=== PATIENT | male | born 1965 | race Caucasian/White ===

== ENCOUNTER 2019-05-16 10:19 | Emergency (ER) | payer OTHER ==
[~2019-05-16] VITALS: Ht 170.2 cm; Wt 96.2 kg
== END 2019-05-16 11:21 | disposition home or self-care (01) ==
LOC: ED 10:19
PROC: 0HQEXZZ Repair Left Lower Arm Skin, External Approach (ICD-10-PCS; principal; 2019-05-16)
DX: S61.512A Laceration without foreign body of left wrist, initial encounter (principal); F17.200 Nicotine dependence, unspecified, uncomplicated; W26.8XXA Contact with other sharp object(s), not elsewhere classified, initial encounter
CPT/HCPCS: 12002; 90715; 99282-25; 99406

== ENCOUNTER 2019-05-30 08:36 | Emergency (ER) | payer OTHER ==
[~2019-05-30] VITALS: Ht 170.2 cm; Wt 96.2 kg
--- OUTSIDE RECORDS SUMMARY | 2019-05-30 08:38 | XMS ---
PreManage Notification: SHANTHI HAHN Security Operating Room Registered Nurse Events No recent Security Events currently on file CRITERIA MET - [facility] - 2 Visits in 30 Days CARE PROVIDERS There are no care providers on record at this time. Amanda has no Care Guidelines for this patient. Dwight VISIT COUNT (12 MO.) [address] [facility] Vo TOTAL 2 NOTE: Visits indicate total known visits. ED/C VISIT TRACKING (12 MO.) 05/30/2019 08:37 [facility] [place] TYPE: Emergency COMPLAINT: - STICHES REMOVAL 05/16/2019 10:[address] [facility] [place] TYPE: Emergency COMPLAINT: - LACERATION LT WRIST DIAGNOSES: - Contact with other sharp object(s), not elsewhere classified, initial encounter - Laceration without foreign body of left wrist, initial encounter - Nicotine dependence, unspecified, uncomplicated INPATIENT VISIT TRACKING (12 MO.) No inpatient visits to display in this time frame [email or web address]
== END 2019-05-30 08:56 | disposition home or self-care (01) ==
LOC: ED 08:36
DX: Z48.02 Encounter for removal of sutures (principal)